=== PATIENT | female | born 1985 | race Caucasian/White ===

== ENCOUNTER 2018-07-01 09:31 | Emergency (ER) | payer MEDICAID, OTHER ==
--- NOTE | 2018-07-01 13:20 | EDM.PDOC ---
ED HPI GENERAL MEDICAL PROBLEM - General Chief Complaint: ENT Problem Stated Complaint: COUGH, SORE THROAT Time Seen by Provider: 07/01/18 09:40 Source of Information: Reports: Patient History Limitations: Reports: No Limitations - History of Present Illness INITIAL COMMENTS - FREE TEXT/NARRATIVE: 33-year-old female presents with a one-day history of sore throat and cough. She denies significant nasal congestion or ear pain. No headaches. No shortness of breath or chest pain no difficulty with breathing. She is concerned because her mom has cancer and immunocompromise and didn't want to take the chance of getting her sick. Onset: Gradual Onset Date: 06/30/18 Duration: Hour(s):, Constant Location: Reports: Other (Throat) Quality: Reports: Ache Severity: Mild Worsens with: Reports: None Associated Symptoms: Reports: Cough. Denies: Fever/Chills, Headaches - Related Data Allergies Allergy/AdvReac Type Severity Reaction Status Date / Time No Known Drug Allergies Allergy Cannot Verified 07/01/18 09:43 Remember Home Meds: Home Meds ALPRAZolam [Alprazolam] 0.25 mg PO ASDIRECTED PRN 07/01/18 [History] Omeprazole 20 mg PO DAILY 07/01/18 [History] PARoxetine HCl [Paroxetine HCl] 20 mg PO DAILY 07/01/18 [History] Zolpidem Tartrate 10 mg PO BEDTIME PRN 07/01/18 [History] Past Medical History - Past Health History Medical/Surgical History: Denies Medical/Surgical History [employer] History: Reports: - Past Surgical History Other Musculoskeletal Surgeries/Procedures:: B hand pain, neck pain ED ROS ENT - Review of Systems Review Of Systems: ROS reveals no pertinent complaints other than HPI. ED EXAM, ENT - Physical Exam Exam: See Below Exam Limited By: No Limitations General Appearance: Alert, WD/WN, No Apparent Distress, Obese Eye Exam: Bilateral Eye: EOMI, PERRL Ears: Normal External Exam, Normal Canal, Hearing Grossly Normal, Normal TMs Nose: Normal Inspection, Normal Mucousa Mouth/Throat: Normal Inspection, Normal Gums, Normal Lips, Normal Teeth, Pharyngeal Erythema Head: Atraumatic, Normocephalic Neck: Normal Inspection, Supple, Non-Tender, Full Range of Motion. No: Lymphadenopathy (L), Lymphadenopathy (R) Respiratory/Chest: No Respiratory Distress, Lungs Clear, Normal Breath Sounds, No Accessory Muscle Use, Chest Non-Tender Cardiovascular: Normal Peripheral Pulses, Regular Rate, Rhythm, No Murmur GI/Abdominal: Soft Extremities: Normal Inspection Neurological: Alert, Oriented, No Motor/Sensory Deficits Psychiatric: Normal Affect, Normal Mood Skin: Warm, Dry, Intact Lymphatic: No Adenopathy Course - Orders/Labs/Meds Orders: Active Orders 24 hr Category Date Time Status CULTURE STREP A CONFIRMATION [RM] Stat Lab 07/01/18 10:03 Results STREP SCRN A RAPID W CULT CONF [RM] Stat Lab 07/01/18 10:03 Results Departure - Departure Time of Disposition: 11:00 Disposition: Home, Self-Care 01 Condition: Good Clinical Impression: Acute sore throat - Discharge Information Instructions: Strep Throat, [id number] Referrals: Brianda Mccormick PA-C [Primary Care Provider] - Forms: ED Department Discharge - My Orders Last 24 Hours: My Active Orders 07/01/18 10:03 CULTURE STREP A CONFIRMATION [RM] Stat STREP SCRN A RAPID W CULT CONF [RM] Stat - Assessment/Plan Last 24 Hours: My Active Orders 07/01/18 10:03 CULTURE STREP A CONFIRMATION [RM] Stat STREP SCRN A RAPID W CULT CONF [RM] Stat Assessment:: Acute sore throat Plan: 1. Cough drops for soothing of throat pain 2. Ibuprofen or Tylenol for any pain discomfort fevers 3. Encouraged to push oral fluids. 4. May take a decongestant to prevent posterior nasal duct drainage which maniac and be contributing to your sore throat 5. Symptoms persist beyond 10-14 days I would recommend repeat evaluation with her primary care.
== END 2018-07-01 11:20 | disposition home or self-care (01) ==
LOC: KA.ED 09:31
DX: J02.9 Acute pharyngitis, unspecified (principal); Z79.899 Other long term (current) drug therapy
CPT/HCPCS: 87081; 87430; 99283